=== PATIENT | female | born 1945 ===

== ENCOUNTER 2023-09-22 11:32 | Inpatient (IN) ==
[2023-09-22] MEDS ORDERED: Iohexol 180 (CONTRAST) 10 ML SDV IV ONE ×4 (15:00→16:30)
[2023-09-22] MEDS ORDERED: fentaNYL 100 mcg/2 ml 50 MCG/ML VIAL ONE ×2 (15:01→16:31)
[2023-09-22] MEDS ORDERED: Propofol 10 MG/ML 20 ML BTL ONE (15:02)
[2023-09-22] MEDS ORDERED: Lidocaine 2% PF 5 ML VIAL ONE (15:02)
[2023-09-22] MEDS: Sulfur Hexaflouride MICROSPHR 25 MG VIAL IV ONE (15:30)
[2023-09-22] MEDS ORDERED: cefTRIAXone 1 gm/50 mL D5W 1 GM/50 ML BAG IV ONE (15:48)
[2023-09-22] MEDS ORDERED: Iohexol 350 (CONTRAST) 100 ML PAK IV ONE (16:22)
[2023-09-22] MEDS ORDERED: Acetaminophen IV 1 GM/100ML 1,000 MG/100 ML BAG IV ONE (16:40)
[2023-09-22] MEDS ORDERED: Dextrose 50% Syringe 50 ml 25 GM/50 ML SYRINGE IV PUSH PRN (17:10)
[2023-09-22] MEDS: NS 0.9% 1000 ml BAG 1,000 ML IV SCH (18:38)
[2023-09-22] MEDS: cefTRIAXone 1 gm/50 mL D5W 1 GM/50 ML BAG IV SCH (19:48)
[2023-09-22] MEDS: metroNIDAZOLE IV 500 MG/100ML 500 MG/100 ML BAG IVPB SCH (19:48)
[2023-09-22] MEDS: Insulin GLARGINE 100 un/ml 10 ml VIAL SUBCUT SCH (21:22)
[2023-09-23 06:23] LABS: ABS Basophils 0.1 10^3/uL (0.0-0.1); ABS Eosinophils 0.1 10^3/uL (0.0-0.5); ABS Lymphocytes 0.8 10^3/uL (1.0-4.8); ABS Monocytes 0.9 10^3/uL (0.0-0.9); ABS Neutrophils 6.7 10^3/uL (1.5-7.6); ABS Nucleated RBC 0.02 10^3/ul; Eosinophil % 0.6 %; Hematocrit 43.4 % (35-45); Hemoglobin 13.6 g/dL (11.5-14.3); Lymphocyte % 9.1 %; Mean Corpuscular Hgb Conc 31.4 g/dL (31-36); Mean Corpuscular Volume 92.3 fL (80-97); Mean Platelet Volume 7.8 fL (7.5-11.2); Nucleated Red Blood Cells % 0.2 %/100WBC (0.0-0.8); Platelet Count 207 10^3/uL (150-450); Red Cell Distribution Width 16.2 % (12-17); White Blood Count 8.5 10^3/uL (3.8-11.8)
[2023-09-23] MEDS: Empagliflozin 25 MG TAB PO SCH (09:36)
[2023-09-23 10:26] LABS: Albumin 3.5 g/dL (3.2-5.2); Albumin/Globulin Ratio 1.5 (1-3); Calcium 8.5 mg/dL (8.6-10.3); Creatinine, Serum 3.72 mg/dL (0.51-0.95); Globulin 2.4 g/dL (2-4); Magnesium 2.2 mg/dL (1.9-2.7); Potassium 3.8 mmol/L (3.5-5.0); Total Bilirubin 0.4 mg/dL (0.2-1.0); Total Protein 5.9 g/dL (6.4-8.9)
[2023-09-23] MEDS: Enoxaparin 100 MG/ML SYR SUBCUT SCH (17:00)
[2023-09-23] MEDS: HYDROmorphone 0.5 MG/0.5 ML SYRINGE IV SLOW PU PRN (20:59)
[2023-09-24 07:51] LABS: Hematocrit 38.2 % (35-45); Hemoglobin 12.8 g/dL (11.5-14.3); Mean Corpuscular Hemoglobin 28.8 pg (27-33); Mean Corpuscular Hgb Conc 33.5 g/dL (31-36); Mean Platelet Volume 8.3 fL (7.5-11.2); Platelet Count 280 10^3/uL (150-450); Red Blood Count 4.44 10^6/uL (3.63-4.92); Red Cell Distribution Width 15.6 % (12-17); White Blood Count 12.5 10^3/uL (3.8-11.8)
[2023-09-24 07:58] LABS: Calcium 8.6 mg/dL (8.6-10.3); Creatinine, Serum 2.39 mg/dL (0.51-0.95); Magnesium 1.8 mg/dL (1.9-2.7); Potassium 3.1 mmol/L (3.5-5.0); eGFR CKD-EPI 20.4 (>60)
[2023-09-24 08:34] LABS: ABS Basophils 0.1 10^3/uL (0.0-0.1); ABS Eosinophils 0.1 10^3/uL (0.0-0.5); ABS Lymphocytes 0.7 10^3/uL (1.0-4.8); ABS Monocytes 0.9 10^3/uL (0.0-0.9); ABS Neutrophils 10.8 10^3/uL (1.5-7.6); ABS Nucleated RBC 0.01 10^3/ul; Lymphocyte % 5.5 %; Nucleated Red Blood Cells % 0.1 %/100WBC (0.0-0.8)
[2023-09-24] MEDS: Magnesium Sulfate 2 gm BAG 2 GM/50 ML BAG IVPB ONE (09:28)
[2023-09-24] MEDS: Potassium Chlor 20 meq TAB.ER PO ONE (09:30)
[2023-09-24] MEDS ORDERED: Saline NASAL SPRAY 0.65% BTL BOTH NARES PRN (14:44)
[2023-09-25 06:21] LABS: ABS Basophils 0.1 10^3/uL (0.0-0.1); ABS Eosinophils 0.2 10^3/uL (0.0-0.5); ABS Lymphocytes 0.9 10^3/uL (1.0-4.8); ABS Monocytes 1.3 10^3/uL (0.0-0.9); ABS Nucleated RBC 0.01 10^3/ul; Eosinophil % 1.5 %; Hematocrit 39.4 % (35-45); Lymphocyte % 6.3 %; Mean Corpuscular Hemoglobin 28.4 pg (27-33); Mean Corpuscular Hgb Conc 33.1 g/dL (31-36); Mean Corpuscular Volume 85.8 fL (80-97); Mean Platelet Volume 8.3 fL (7.5-11.2); Nucleated Red Blood Cells % 0.1 %/100WBC (0.0-0.8); Platelet Count 305 10^3/uL (150-450); Red Cell Distribution Width 15.5 % (12-17); White Blood Count 14.4 10^3/uL (3.8-11.8)
[2023-09-25 06:25] LABS: Creatinine, Serum 1.74 mg/dL (0.51-0.95); eGFR CKD-EPI 29.9 (>60)
[2023-09-25] MEDS: Potassium Chlor 20 meq TAB.ER PO ONE (08:36)
[2023-09-25] MEDS: KCL 20 MEQ/100 ML IVPREMIX 20 MEQ/100 ML BAG IV SCH (08:36)
[2023-09-25] MEDS ORDERED: Zosyn per Pharmacy NOTE FOLLOW UP SCH (10:00)
[2023-09-25] MEDS: Piperacillin/Tazobac 3.375 BAG 3.375 GM/100 ML BAG IV ONE (15:28)
[2023-09-25] MEDS: ZOSYN 3.375 GM Q8H per EXTENDED INFUSION IV SCH (21:05)
[2023-09-26 07:11] LABS: ABS Basophils 0.1 10^3/uL (0.0-0.1); ABS Eosinophils 0.2 10^3/uL (0.0-0.5); ABS Lymphocytes 0.9 10^3/uL (1.0-4.8); ABS Monocytes 0.9 10^3/uL (0.0-0.9); ABS Neutrophils 9.4 10^3/uL (1.5-7.6); ABS Nucleated RBC 0.02 10^3/ul; Eosinophil % 2.1 %; Hematocrit 38.7 % (35-45); Hemoglobin 12.8 g/dL (11.5-14.3); Lymphocyte % 7.7 %; Mean Corpuscular Hemoglobin 28.5 pg (27-33); Mean Corpuscular Hgb Conc 33.1 g/dL (31-36); Mean Platelet Volume 7.9 fL (7.5-11.2); Nucleated Red Blood Cells % 0.2 %/100WBC (0.0-0.8); Platelet Count 275 10^3/uL (150-450); Red Cell Distribution Width 15.7 % (12-17); White Blood Count 11.6 10^3/uL (3.8-11.8)
[2023-09-26 07:27] LABS: Calcium 8.2 mg/dL (8.6-10.3); Creatinine, Serum 1.43 mg/dL (0.51-0.95); Magnesium 1.7 mg/dL (1.9-2.7); Potassium 3.1 mmol/L (3.5-5.0); eGFR CKD-EPI 37.8 (>60)
[2023-09-26] MEDS: Magnesium Sulfate 2 gm BAG 2 GM/50 ML BAG IVPB ONE (09:46)
[2023-09-26] MEDS: Potassium Chlor 20 meq TAB.ER PO ONE (09:46)
[2023-09-26] MEDS: Iodixanol (CONTRAST) 320 MG/ML 100 ML SDV IV ONE (11:08)
[2023-09-26] MEDS ORDERED: Magnesium Hydroxide LIQ 30 ML UDC PO PRN (11:37)
[2023-09-26] MEDS ORDERED: Polyethylene Glycol 3350 17 GM PACKET PO PRN (11:37)
[2023-09-26] MEDS: Magnesium Hydroxide LIQ 30 ML UDC PO SCH (11:56)
[2023-09-26] MEDS: NS 0.9% 1000 ml BAG 1,000 ML IV SCH (12:45)
[2023-09-26] MEDS: HYDROmorphone 1 MG/1 ML SYRINGE IV SLOW PU ONE (22:19)
[2023-09-27] MEDS: Senna TAB 8.6 mg TAB PO SCH (00:55)
[2023-09-27 06:24] LABS: ABS Basophils 0.1 10^3/uL (0.0-0.1); ABS Eosinophils 0.3 10^3/uL (0.0-0.5); ABS Monocytes 0.8 10^3/uL (0.0-0.9); ABS Neutrophils 8.8 10^3/uL (1.5-7.6); Eosinophil % 2.7 %; Hematocrit 37.4 % (35-45); Lymphocyte % 8.7 %; Mean Corpuscular Hemoglobin 27.8 pg (27-33); Mean Corpuscular Volume 87.1 fL (80-97); Mean Platelet Volume 7.7 fL (7.5-11.2); Platelet Count 284 10^3/uL (150-450); Red Blood Count 4.29 10^6/uL (3.63-4.92); Red Cell Distribution Width 15.5 % (12-17)
[2023-09-27 06:42] LABS: Calcium 8.1 mg/dL (8.6-10.3); Creatinine, Serum 1.41 mg/dL (0.51-0.95); Potassium 3.6 mmol/L (3.5-5.0); eGFR CKD-EPI 38.4 (>60)
[2023-09-27] MEDS: Acetaminophen IV 1 GM/100ML 1,000 MG/100 ML BAG IV PRN (10:42)
[2023-09-27] MEDS: Enoxaparin 100 MG/ML SYR SUBCUT SCH (10:47)
[2023-09-27] MEDS: HYDROmorphone 0.5 MG/0.5 ML SYRINGE IV SLOW PU PRN (11:47)
[2023-09-27] MEDS: Insulin GLARGINE 100 un/ml 10 ml VIAL SUBCUT SCH (20:42)
[2023-09-27] MEDS: HYDROmorphone 1 MG/1 ML SYRINGE IV SLOW PU PRN (20:44)
[2023-09-28 06:24] LABS: Calcium 7.9 mg/dL (8.6-10.3); Creatinine, Serum 1.55 mg/dL (0.51-0.95); Potassium 3.5 mmol/L (3.5-5.0); eGFR CKD-EPI 34.3 (>60)
[2023-09-29 06:35] LABS: ABS Basophils 0.1 10^3/uL (0.0-0.1); ABS Eosinophils 0.3 10^3/uL (0.0-0.5); ABS Monocytes 0.8 10^3/uL (0.0-0.9); ABS Neutrophils 9.4 10^3/uL (1.5-7.6); ABS Nucleated RBC 0.01 10^3/ul; Eosinophil % 2.8 %; Hemoglobin 11.4 g/dL (11.5-14.3); Lymphocyte % 8.2 %; Mean Corpuscular Hemoglobin 28.9 pg (27-33); Mean Corpuscular Hgb Conc 33.6 g/dL (31-36); Mean Corpuscular Volume 86.1 fL (80-97); Mean Platelet Volume 8.1 fL (7.5-11.2); Nucleated Red Blood Cells % 0.1 %/100WBC (0.0-0.8); Platelet Count 305 10^3/uL (150-450); Red Blood Count 3.94 10^6/uL (3.63-4.92); Red Cell Distribution Width 15.3 % (12-17); White Blood Count 11.6 10^3/uL (3.8-11.8)
[2023-09-29 06:54] LABS: Calcium 8.2 mg/dL (8.6-10.3); Creatinine, Serum 1.92 mg/dL (0.51-0.95); Magnesium 2.3 mg/dL (1.9-2.7); Potassium 3.6 mmol/L (3.5-5.0); eGFR CKD-EPI 26.5 (>60)
[2023-09-29] MEDS: Lactated Ringers 1000 ml BAG 1,000 ML IV SCH (10:29)
[2023-09-29] MEDS ORDERED: Lorazepam PYXIS KEY PRN (13:12)
[2023-09-29] MEDS: LORazepam 2 mg VIAL 1 ml IV PUSH ONE (14:25)
[2023-09-29] MEDS: Gadoteridol (CONTRAST) 279.3 MG/ML 10 ML IV ONE (15:40)
[2023-09-29] MEDS: Glucagon 1 mg VIAL KIT ONE (15:57)
[2023-09-29] MEDS: Polyethylene Glycol 3350 17 GM PACKET PO SCH (17:36)
[2023-09-30] MEDS: Ondansetron 4 mg VIAL 2 MG/ML 2 ml VIAL IV PRN (05:43)
[2023-09-30 06:27] LABS: ABS Basophils 0.1 10^3/uL (0.0-0.1); ABS Eosinophils 0.2 10^3/uL (0.0-0.5); ABS Lymphocytes 0.7 10^3/uL (1.0-4.8); ABS Monocytes 1.1 10^3/uL (0.0-0.9); ABS Neutrophils 8.9 10^3/uL (1.5-7.6); Eosinophil % 1.9 %; Hemoglobin 11.1 g/dL (11.5-14.3); Lymphocyte % 6.7 %; Mean Corpuscular Hemoglobin 28.1 pg (27-33); Mean Corpuscular Hgb Conc 32.7 g/dL (31-36); Mean Corpuscular Volume 86.1 fL (80-97); Mean Platelet Volume 7.7 fL (7.5-11.2); Platelet Count 323 10^3/uL (150-450); Red Blood Count 3.95 10^6/uL (3.63-4.92); Red Cell Distribution Width 15.5 % (12-17); White Blood Count 11.1 10^3/uL (3.8-11.8)
[2023-09-30 07:00] LABS: Calcium 8.2 mg/dL (8.6-10.3); Creatinine, Serum 2.45 mg/dL (0.51-0.95); Potassium 3.6 mmol/L (3.5-5.0); eGFR CKD-EPI 19.8 (>60)
[2023-09-30] MEDS: Enoxaparin 100 MG/ML SYR SUBCUT SCH (10:43)
[2023-09-30] MEDS ORDERED: Midazolam 10 mg/10 ml VIAL 1 mg/ml 10 ml VIAL (10 mg) ONE (14:41)
[2023-09-30] MEDS ORDERED: fentaNYL 100 mcg/2 ml 50 MCG/ML VIAL ONE (14:42)
[2023-09-30] MEDS: PEG 3000 GI LAVAGE 1 GALLON PO ONE (17:41)
[2023-10-01 06:09] LABS: ABS Basophils 0.1 10^3/uL (0.0-0.1); ABS Eosinophils 0.2 10^3/uL (0.0-0.5); ABS Lymphocytes 0.8 10^3/uL (1.0-4.8); ABS Monocytes 0.9 10^3/uL (0.0-0.9); ABS Neutrophils 8.8 10^3/uL (1.5-7.6); ABS Nucleated RBC 0.01 10^3/ul; Eosinophil % 1.6 %; Hematocrit 34.5 % (35-45); Hemoglobin 11.4 g/dL (11.5-14.3); Lymphocyte % 7.4 %; Mean Corpuscular Hemoglobin 28.6 pg (27-33); Mean Corpuscular Hgb Conc 32.9 g/dL (31-36); Mean Corpuscular Volume 86.8 fL (80-97); Mean Platelet Volume 7.6 fL (7.5-11.2); Nucleated Red Blood Cells % 0.1 %/100WBC (0.0-0.8); Platelet Count 309 10^3/uL (150-450); Red Blood Count 3.97 10^6/uL (3.63-4.92); Red Cell Distribution Width 15.5 % (12-17); White Blood Count 10.7 10^3/uL (3.8-11.8)
[2023-10-01 06:21] LABS: INR 1.27 (0.83-1.13)
[2023-10-01 06:27] LABS: Calcium 8.1 mg/dL (8.6-10.3); Creatinine, Serum 3.12 mg/dL (0.51-0.95); Potassium 3.8 mmol/L (3.5-5.0); eGFR CKD-EPI 14.8 (>60)
[2023-10-01] MEDS: PEG 3000 GI LAVAGE 1 GALLON PO ONE (08:07)
[2023-10-01] MEDS ORDERED: Lidocaine 2% JELLY 10 ML JELLY ONE (10:16)
[2023-10-01] MEDS ORDERED: Flumazenil 0.5 mg/5 ml 0.1 MG/ML 5 ml VIAL IV PRN (13:31)
[2023-10-01] MEDS ORDERED: Naloxone 0.4 mg VIAL 0.4 mg/ml 1 ml VIAL IV PUSH PRN (13:31)
[2023-10-01] MEDS: fentaNYL 100 mcg/2 ml 50 MCG/ML VIAL IV SLOW PU ONE (15:36)
[2023-10-01] MEDS: Midazolam 10 mg/10 ml VIAL 1 mg/ml 10 ml VIAL (10 mg) IV SLOW PU ONE (15:37)
[2023-10-01] MEDS: Cefepime 1 GM in Dextrose 1 GM/50 ML BAG IV ONE (16:45)
[2023-10-01] MEDS: Midazolam 2 mg/2 ml VIAL 1 mg/ml 2 ml VIAL (2 mg) ONE (16:45)
[2023-10-01] MEDS: fentaNYL 250 mcg/5 ml 50 MCG/ML 5 ml VIAL (250 MCG) ONE (16:45)
[2023-10-02 06:18] LABS: Hematocrit 35.6 % (35-45); Hemoglobin 11.7 g/dL (11.5-14.3); Mean Corpuscular Hemoglobin 28.4 pg (27-33); Mean Corpuscular Hgb Conc 32.8 g/dL (31-36); Mean Corpuscular Volume 86.6 fL (80-97); Mean Platelet Volume 7.9 fL (7.5-11.2); Platelet Count 318 10^3/uL (150-450); Red Blood Count 4.11 10^6/uL (3.63-4.92); Red Cell Distribution Width 15.6 % (12-17); White Blood Count 8.4 10^3/uL (3.8-11.8)
[2023-10-02 07:09] LABS: Calcium 8.5 mg/dL (8.6-10.3); Creatinine, Serum 2.96 mg/dL (0.51-0.95); Potassium 3.7 mmol/L (3.5-5.0); eGFR CKD-EPI 15.8 (>60)
[2023-10-02] MEDS ORDERED: Naloxone 0.4 mg VIAL 0.4 mg/ml 1 ml VIAL IV PUSH PRN (08:14)
[2023-10-02] MEDS ORDERED: Flumazenil 0.5 mg/5 ml 0.1 MG/ML 5 ml VIAL IV PRN (08:14)
[2023-10-02] MEDS: fentaNYL 100 mcg/2 ml 50 MCG/ML VIAL IV SLOW PU ONE (10:48)
[2023-10-02] MEDS: Midazolam 10 mg/10 ml VIAL 1 mg/ml 10 ml VIAL (10 mg) IV SLOW PU ONE (10:48)
[2023-10-03 08:53] LABS: Sodium 140 mmol/L (135-145)
[2023-10-03 08:54] LABS: Chloride 107 mmol/L (101-111)
[2023-10-03 16:18] LABS: Calcium 8.4 mg/dL (8.6-10.3); Creatinine, Serum 1.78 mg/dL (0.51-0.95); Potassium 3.5 mmol/L (3.5-5.0)
[2023-10-04 06:27] LABS: Calcium 8.3 mg/dL (8.6-10.3); Creatinine, Serum 1.45 mg/dL (0.51-0.95); Potassium 3.3 mmol/L (3.5-5.0); eGFR CKD-EPI 37.2 (>60)
[2023-10-04 08:08] LABS: Albumin 3.4 g/dL (3.2-5.2); Albumin/Globulin Ratio 1.5 (1-3); Direct Bilirubin 0.1 mg/dL (0.03-0.18); Globulin 2.3 g/dL (2-4); Indirect Bilirubin 0.4 mg/dL (0.3-1.0); Magnesium 1.5 mg/dL (1.9-2.7); Total Bilirubin 0.5 mg/dL (0.2-1.0); Total Protein 5.7 g/dL (6.4-8.9)
[2023-10-04] MEDS: Potassium Chlor 20 meq TAB.ER PO ONE (11:51)
[2023-10-04] MEDS: Magnesium Sulf 4 GM/100 ML IV 4,000 MG/100 ML BAG IVPB ONE (12:22)
[2023-10-04] MEDS: Gadoteridol (CONTRAST) 279.3 MG/ML 10 ML IV ONE (14:43)
[2023-10-05] MEDS: HYDROmorphone 0.5 MG/0.5 ML SYRINGE IV SLOW PU ONE (04:02)
[2023-10-05] MEDS: HYDROmorphone 1 MG/1 ML SYRINGE IV SLOW PU ONE (04:08)
[2023-10-05 05:48] LABS: Hemoglobin 11.2 g/dL (11.5-14.3); Mean Corpuscular Hemoglobin 29.1 pg (27-33); Mean Corpuscular Hgb Conc 33.9 g/dL (31-36); Mean Corpuscular Volume 85.7 fL (80-97); Mean Platelet Volume 7.5 fL (7.5-11.2); Platelet Count 344 10^3/uL (150-450); Red Blood Count 3.86 10^6/uL (3.63-4.92); White Blood Count 14.7 10^3/uL (3.8-11.8)
[2023-10-05 06:34] LABS: Calcium 8.7 mg/dL (8.6-10.3); Creatinine, Serum 1.36 mg/dL (0.51-0.95); Potassium 3.6 mmol/L (3.5-5.0); eGFR CKD-EPI 40.1 (>60)
[2023-10-05] MEDS: HYDROmorphone 1 MG/1 ML SYRINGE IV SLOW PU PRN (10:29)
[2023-10-05 14:40] LABS: Hematocrit 31.7 % (35-45); Hemoglobin 10.7 g/dL (11.5-14.3); Mean Corpuscular Hgb Conc 33.6 g/dL (31-36); Mean Corpuscular Volume 86.4 fL (80-97); Mean Platelet Volume 7.5 fL (7.5-11.2); Platelet Count 332 10^3/uL (150-450); Red Blood Count 3.67 10^6/uL (3.63-4.92); Red Cell Distribution Width 16.1 % (12-17); White Blood Count 13.8 10^3/uL (3.8-11.8)
[2023-10-05 15:08] LABS: Calcium 8.5 mg/dL (8.6-10.3); Creatinine, Serum 1.79 mg/dL (0.51-0.95); Potassium 3.9 mmol/L (3.5-5.0); eGFR CKD-EPI 28.9 (>60)
[2023-10-06 06:07] LABS: Hemoglobin 10.5 g/dL (11.5-14.3); Mean Corpuscular Hemoglobin 29.3 pg (27-33); Mean Corpuscular Volume 86.2 fL (80-97); Mean Platelet Volume 7.4 fL (7.5-11.2); Platelet Count 314 10^3/uL (150-450); Red Cell Distribution Width 16.3 % (12-17); White Blood Count 13.3 10^3/uL (3.8-11.8)
[2023-10-06 06:13] LABS: INR 1.39 (0.83-1.13)
[2023-10-06 07:01] LABS: Calcium 8.7 mg/dL (8.6-10.3); Creatinine, Serum 1.98 mg/dL (0.51-0.95); Magnesium 1.8 mg/dL (1.9-2.7); Potassium 3.5 mmol/L (3.5-5.0); eGFR CKD-EPI 25.6 (>60)
[2023-10-06] MEDS: HYDROmorphone 0.5 MG/0.5 ML SYRINGE IV SLOW PU PRN (12:13)
[2023-10-06] MEDS: HYDROmorphone 0.5 MG/0.5 ML SYRINGE ONE (12:35)
[2023-10-06] MEDS: fentaNYL 100 mcg/2 ml 50 MCG/ML VIAL ONE (14:03)
[2023-10-06 18:07] LABS: Calcium 8.9 mg/dL (8.6-10.3); Creatinine, Serum 1.69 mg/dL (0.51-0.95); Potassium 3.5 mmol/L (3.5-5.0); eGFR CKD-EPI 30.9 (>60)
[2023-10-07 06:19] LABS: Hematocrit 35.5 % (35-45); Hemoglobin 11.8 g/dL (11.5-14.3); Mean Corpuscular Hemoglobin 28.8 pg (27-33); Mean Corpuscular Hgb Conc 33.2 g/dL (31-36); Mean Corpuscular Volume 86.8 fL (80-97); Platelet Count 310 10^3/uL (150-450); Red Blood Count 4.09 10^6/uL (3.63-4.92); White Blood Count 12.4 10^3/uL (3.8-11.8)
[2023-10-07 06:54] LABS: Anion Gap 14 mmol/L (2-16); Blood Urea Nitrogen 23 mg/dL (6-24); CO2 Carbon Dioxide 35 mmol/L (22-32); Calcium 8.8 mg/dL (8.6-10.3); Chloride 95 mmol/L (101-111); Creatinine, Serum 1.48 mg/dL (0.51-0.95); Glucose 213 mg/dL (70-100); Magnesium 1.4 mg/dL (1.9-2.7); Potassium 3.2 mmol/L (3.5-5.0); Sodium 144 mmol/L (135-145); eGFR CKD-EPI 36.2 (>60)
[2023-10-07] MEDS: Magnesium Sulfate 2 gm BAG 2 GM/50 ML BAG IVPB ONE ×2 (08:08→16:50)
[2023-10-07] MEDS: Potassium Chlor 20 meq TAB.ER PO ONE (08:09)
[2023-10-07] MEDS: Iodixanol (CONTRAST) 320 MG/ML 100 ML SDV IV ONE (12:12)
[2023-10-07] MEDS: fentaNYL 250 mcg/5 ml 50 MCG/ML 5 ml VIAL (250 MCG) ONE (12:27)
[2023-10-07] MEDS: Acetaminophen IV 1 GM/100ML 1,000 MG/100 ML BAG IV PRN ×2 (12:48→21:13)
[2023-10-07 14:52] LABS: Lipase < 10 U/L (11.0-82.0)
[2023-10-07] MEDS: D5W 1/2 NS 1000 ml BAG 1,000 ML IV SCH (16:50)
[2023-10-08 05:36] LABS: ABS Basophils 0.1 10^3/uL (0.0-0.1); ABS Eosinophils 0.1 10^3/uL (0.0-0.5); ABS Monocytes 0.9 10^3/uL (0.0-0.9); ABS Neutrophils 7.3 10^3/uL (1.5-7.6); Eosinophil % 1.3 %; Hemoglobin 10.2 g/dL (11.5-14.3); Lymphocyte % 11.1 %; Mean Corpuscular Hemoglobin 28.4 pg (27-33); Mean Corpuscular Volume 86.2 fL (80-97); Mean Platelet Volume 7.5 fL (7.5-11.2); Platelet Count 306 10^3/uL (150-450); Red Cell Distribution Width 15.9 % (12-17); White Blood Count 9.4 10^3/uL (3.8-11.8)
[2023-10-08 06:15] LABS: Albumin 3.3 g/dL (3.2-5.2); Albumin/Globulin Ratio 1.5 (1-3); Calcium 8.3 mg/dL (8.6-10.3); Creatinine, Serum 1.03 mg/dL (0.51-0.95); Globulin 2.2 g/dL (2-4); Magnesium 1.8 mg/dL (1.9-2.7); Phosphorus 3.2 mg/dL (2.5-5.0); Potassium 3.3 mmol/L (3.5-5.0); Total Bilirubin 0.6 mg/dL (0.2-1.0); Total Protein 5.5 g/dL (6.4-8.9)
[2023-10-08] MEDS: Magnesium Sulfate 2 gm BAG 2 GM/50 ML BAG IVPB ONE (07:49)
[2023-10-08] MEDS: Potassium Chlor 20 meq TAB.ER PO ONE (08:16)
[2023-10-08] MEDS: Magnesium Sulfate IV 1GM/100ML 1 GM/100 ML BAG IV ONE (08:18)
[2023-10-08] MEDS: Enoxaparin 40 MG/0.4 ML SYR SUBCUT SCH (17:58)
[2023-10-09 07:50] LABS: Hematocrit 30.8 % (35-45); Hemoglobin 10.4 g/dL (11.5-14.3); Mean Corpuscular Hemoglobin 28.9 pg (27-33); Mean Corpuscular Hgb Conc 33.8 g/dL (31-36); Mean Corpuscular Volume 85.8 fL (80-97); Mean Platelet Volume 7.9 fL (7.5-11.2); Platelet Count 318 10^3/uL (150-450); Red Blood Count 3.59 10^6/uL (3.63-4.92); Red Cell Distribution Width 15.8 % (12-17)
[2023-10-09] MEDS ORDERED: Dextrose 50% Syringe 50 ml 25 GM/50 ML SYRINGE IV PUSH PRN (07:58)
[2023-10-09 08:11] LABS: Calcium 8.2 mg/dL (8.6-10.3); Creatinine, Serum 0.9 mg/dL (0.51-0.95); Potassium 3.9 mmol/L (3.5-5.0); eGFR CKD-EPI 65.8 (>60)
[2023-10-09] MEDS: Insulin GLARGINE 100 un/ml 10 ml VIAL SUBCUT SCH (20:39)
[2023-10-09] MEDS ORDERED: Insulin GLARGINE 100 un/ml 10 ml VIAL SUBCUT SCH (21:00)
[2023-10-10 06:48] LABS: Hematocrit 33.9 % (35-45); Hemoglobin 11.3 g/dL (11.5-14.3); Mean Corpuscular Hemoglobin 29.3 pg (27-33); Mean Corpuscular Hgb Conc 33.3 g/dL (31-36); Mean Platelet Volume 7.9 fL (7.5-11.2); Platelet Count 301 10^3/uL (150-450); Red Blood Count 3.85 10^6/uL (3.63-4.92); Red Cell Distribution Width 15.7 % (12-17); White Blood Count 10.6 10^3/uL (3.8-11.8)
[2023-10-10 06:54] LABS: Creatinine, Serum 1.07 mg/dL (0.51-0.95); Potassium 4.2 mmol/L (3.5-5.0); eGFR CKD-EPI 53.5 (>60)
[2023-10-10] MEDS ORDERED: Senna TAB 8.6 mg TAB PO PRN (14:36)
[2023-10-11 05:53] LABS: Hematocrit 30.9 % (35-45); Hemoglobin 10.3 g/dL (11.5-14.3); Mean Corpuscular Hemoglobin 28.6 pg (27-33); Mean Corpuscular Hgb Conc 33.3 g/dL (31-36); Platelet Count 335 10^3/uL (150-450); Red Cell Distribution Width 15.9 % (12-17); White Blood Count 9.1 10^3/uL (3.8-11.8)
[2023-10-11 06:24] LABS: Calcium 8.3 mg/dL (8.6-10.3); Creatinine, Serum 1.05 mg/dL (0.51-0.95); Magnesium 1.6 mg/dL (1.9-2.7); Potassium 4.2 mmol/L (3.5-5.0); eGFR CKD-EPI 54.7 (>60)
[2023-10-11] MEDS: Magnesium Sulf 4 GM/100 ML IV 4,000 MG/100 ML BAG IVPB ONE (08:32)
[2023-10-12 08:08] LABS: Calcium 8.7 mg/dL (8.6-10.3); Creatinine, Serum 0.99 mg/dL (0.51-0.95); Magnesium 1.8 mg/dL (1.9-2.7); Potassium 4.5 mmol/L (3.5-5.0); eGFR CKD-EPI 58.7 (>60)
[2023-10-12] MEDS: Magnesium Sulfate 2 gm BAG 2 GM/50 ML BAG IVPB ONE (08:42)
[2023-10-12] MEDS: Magnesium Sulfate IV 1GM/100ML 1 GM/100 ML BAG IV ONE (10:05)
[2023-10-12] MEDS: Empagliflozin 25 MG TAB PO SCH (14:07)
[2023-10-13 06:06] LABS: ABS Basophils 0.1 10^3/uL (0.0-0.1); ABS Eosinophils 0.1 10^3/uL (0.0-0.5); ABS Lymphocytes 1.4 10^3/uL (1.0-4.8); ABS Monocytes 1.5 10^3/uL (0.0-0.9); ABS Neutrophils 12.1 10^3/uL (1.5-7.6); Eosinophil % 0.9 %; Hematocrit 32.2 % (35-45); Hemoglobin 10.4 g/dL (11.5-14.3); Lymphocyte % 9.3 %; Mean Corpuscular Hgb Conc 32.5 g/dL (31-36); Mean Corpuscular Volume 86.2 fL (80-97); Mean Platelet Volume 8.3 fL (7.5-11.2); Platelet Count 441 10^3/uL (150-450); Red Blood Count 3.73 10^6/uL (3.63-4.92); Red Cell Distribution Width 16.1 % (12-17); White Blood Count 15.3 10^3/uL (3.8-11.8)
[2023-10-13 08:37] LABS: ABS Eosinophils 0.1 10^3/uL (0.0-0.5); ABS Lymphocytes 0.9 10^3/uL (1.0-4.8); ABS Monocytes 1.5 10^3/uL (0.0-0.9); ABS Neutrophils 14.5 10^3/uL (1.5-7.6); ABS Nucleated RBC 0.01 10^3/ul; Eosinophil % 0.6 %; Hematocrit 32.9 % (35-45); Lymphocyte % 5.3 %; Mean Corpuscular Hemoglobin 28.9 pg (27-33); Mean Corpuscular Hgb Conc 33.5 g/dL (31-36); Mean Corpuscular Volume 86.4 fL (80-97); Platelet Count 423 10^3/uL (150-450); Red Blood Count 3.81 10^6/uL (3.63-4.92); Red Cell Distribution Width 15.5 % (12-17); White Blood Count 17.1 10^3/uL (3.8-11.8)
[2023-10-13] MEDS: Magnesium Sulfate 2 gm BAG 2 GM/50 ML BAG IVPB ONE (08:46)
[2023-10-13 09:23] LABS: Albumin 3.6 g/dL (3.2-5.2); Albumin/Globulin Ratio 1.4 (1-3); Calcium 8.8 mg/dL (8.6-10.3); Creatinine, Serum 1.1 mg/dL (0.51-0.95); Globulin 2.6 g/dL (2-4); Magnesium 2.1 mg/dL (1.9-2.7); Phosphorus 4.3 mg/dL (2.5-5.0); Potassium 4.2 mmol/L (3.5-5.0); Total Bilirubin 0.5 mg/dL (0.2-1.0); Total Protein 6.2 g/dL (6.4-8.9); eGFR CKD-EPI 51.8 (>60)
[2023-10-13] MEDS: Lactated Ringers 1000 ml BAG 1,000 ML IV SCH (17:30)
[2023-10-13 17:42] LABS: Urine Appearance Clear; Urine Bacteria Absent /HPF (Absent); Urine Bilirubin Negative (Negative); Urine Blood 3+ (Negative); Urine Color Colorless; Urine Glucose 4+ (>=1000 mg/dL) (Negative); Urine Ketones Negative (Negative); Urine Nitrite Negative (Negative); Urine Protein 1+ (>=30 mg/dL) (Negative); Urine Red Blood Cell 3+(>10/hpf) /HPF (0-Trace); Urine Urobilinogen Negative (Negative); Urine White Blood Cell 2+(11-20/hpf) /HPF (0-Trace)
[2023-10-13 17:43] LABS: Urine Appearance Clear; Urine Bacteria Absent /HPF (Absent); Urine Bilirubin Negative (Negative); Urine Blood Trace (Negative); Urine Color Light-Yellow; Urine Glucose 4+ (>=1000 mg/dL) (Negative); Urine Ketones Negative (Negative); Urine Nitrite Negative (Negative); Urine Protein 1+ (>=30 mg/dL) (Negative); Urine Red Blood Cell Trace(0-2/hpf) /HPF (0-Trace); Urine Urobilinogen Negative (Negative); Urine White Blood Cell 1+(6-10/hpf) /HPF (0-Trace); Urine pH 7.5 (5.0-8.0)
[2023-10-13] MEDS: Acetaminophen IV 1 GM/100ML 1,000 MG/100 ML BAG IV SCH (17:55)
[2023-10-13] MEDS: HYDROmorphone 1 MG/1 ML SYRINGE IV SLOW PU PRN (18:16)
[2023-10-13] MEDS: Iodixanol (CONTRAST) 320 MG/ML 100 ML SDV IV ONE (19:34)
[2023-10-13] MEDS ORDERED: Zosyn per Pharmacy NOTE FOLLOW UP SCH (20:00)
[2023-10-13] MEDS: Piperacillin/Tazobac 3.375 BAG 3.375 GM/100 ML BAG IV ONE (21:05)
[2023-10-14] MEDS: Enoxaparin 40 MG/0.4 ML SYR SUBCUT ONE (01:16)
[2023-10-14] MEDS: ZOSYN 3.375 GM Q8H per EXTENDED INFUSION IV SCH (01:37)
[2023-10-14] MEDS: HYDROmorphone 1 MG/1 ML SYRINGE IV SLOW PU ONE (02:19)
[2023-10-14 06:07] LABS: Hematocrit 32.4 % (35-45); Hemoglobin 10.8 g/dL (11.5-14.3); Mean Corpuscular Hemoglobin 28.9 pg (27-33); Mean Corpuscular Hgb Conc 33.3 g/dL (31-36); Mean Corpuscular Volume 86.8 fL (80-97); Mean Platelet Volume 8.3 fL (7.5-11.2); Platelet Count 415 10^3/uL (150-450); Red Blood Count 3.74 10^6/uL (3.63-4.92); Red Cell Distribution Width 16.4 % (12-17); White Blood Count 14.3 10^3/uL (3.8-11.8)
[2023-10-14 06:25] LABS: Albumin 3.5 g/dL (3.2-5.2); Albumin/Globulin Ratio 1.3 (1-3); Calcium 8.7 mg/dL (8.6-10.3); Creatinine, Serum 1.25 mg/dL (0.51-0.95); Globulin 2.6 g/dL (2-4); Potassium 4.1 mmol/L (3.5-5.0); Total Bilirubin 0.8 mg/dL (0.2-1.0); Total Protein 6.1 g/dL (6.4-8.9); eGFR CKD-EPI 44.4 (>60)
[2023-10-14] MEDS: Enoxaparin 80 MG/0.8 ML SYR SUBCUT SCH (07:52)
[2023-10-14] MEDS: Sulfur Hexaflouride MICROSPHR 25 MG VIAL IV ONE (17:40)
[2023-10-15 07:38] LABS: Albumin 3.3 g/dL (3.2-5.2); Albumin/Globulin Ratio 1.3 (1-3); Calcium 8.4 mg/dL (8.6-10.3); Creatinine, Serum 1.41 mg/dL (0.51-0.95); Globulin 2.6 g/dL (2-4); Potassium 3.9 mmol/L (3.5-5.0); Total Bilirubin 0.6 mg/dL (0.2-1.0); Total Protein 5.9 g/dL (6.4-8.9); eGFR CKD-EPI 38.4 (>60)
[2023-10-15 07:39] LABS: Hematocrit 29.1 % (35-45); Hemoglobin 9.6 g/dL (11.5-14.3); Mean Corpuscular Hemoglobin 28.8 pg (27-33); Mean Corpuscular Hgb Conc 32.9 g/dL (31-36); Mean Corpuscular Volume 87.7 fL (80-97); Mean Platelet Volume 8.3 fL (7.5-11.2); Platelet Count 352 10^3/uL (150-450); Red Blood Count 3.32 10^6/uL (3.63-4.92); Red Cell Distribution Width 16.1 % (12-17); White Blood Count 14.3 10^3/uL (3.8-11.8)
[2023-10-15 09:01] LABS: ABS Basophils 0.1 10^3/uL (0.0-0.1); ABS Eosinophils 0.2 10^3/uL (0.0-0.5); ABS Lymphocytes 1.5 10^3/uL (1.0-4.8); ABS Monocytes 1.9 10^3/uL (0.0-0.9); ABS Neutrophils 10.6 10^3/uL (1.5-7.6); ABS Nucleated RBC 0.01 10^3/ul; Eosinophil % 1.4 %; Lymphocyte % 10.4 %
[2023-10-15] MEDS ORDERED: Sulfur Hexaflouride MICROSPHR 25 MG VIAL ONE (14:31)
[2023-10-15] MEDS ORDERED: Senna TAB 8.6 mg TAB PO PRN (14:43)
[2023-10-15] MEDS: Ciprofloxacin 400mg IVPREMIX 400 MG/200 ML BAG IVPB SCH (16:07)
[2023-10-15] MEDS ORDERED: Ampicillin IV 1 GM in NS 0.9% 50 ML 50 ML IVPB SCH (19:00)
[2023-10-16 08:09] LABS: Hematocrit 28.7 % (35-45); Hemoglobin 9.5 g/dL (11.5-14.3); Mean Corpuscular Hemoglobin 28.9 pg (27-33); Mean Corpuscular Hgb Conc 32.9 g/dL (31-36); Mean Corpuscular Volume 87.8 fL (80-97); Mean Platelet Volume 8.4 fL (7.5-11.2); Platelet Count 363 10^3/uL (150-450); Red Blood Count 3.27 10^6/uL (3.63-4.92); Red Cell Distribution Width 16.1 % (12-17); White Blood Count 14.2 10^3/uL (3.8-11.8)
[2023-10-16 08:16] LABS: Calcium 8.1 mg/dL (8.6-10.3); Creatinine, Serum 1.16 mg/dL (0.51-0.95); Magnesium 1.9 mg/dL (1.9-2.7); Potassium 3.8 mmol/L (3.5-5.0); eGFR CKD-EPI 48.6 (>60)
[2023-10-16] MEDS: Polyethylene Glycol 3350 17 GM PACKET PO SCH (09:04)
[2023-10-16] MEDS ORDERED: HYDROmorphone 1 MG/1 ML SYRINGE IV SLOW PU PRN (19:12)
[2023-10-16] MEDS: Senna TAB 8.6 mg TAB PO SCH (22:50)
[2023-10-17] MEDS ORDERED: LORazepam 2 mg VIAL 1 ml IV PUSH PRN (02:03)
[2023-10-17] MEDS ORDERED: Lorazepam PYXIS KEY PRN (02:03)
[2023-10-17] MEDS: Magnesium Sulfate 2 gm BAG 2 GM/50 ML BAG IVPB ONE (09:03)
[2023-10-17] MEDS: Magnesium Sulfate IV 1GM/100ML 1 GM/100 ML BAG IV ONE (12:16)
[2023-10-18 09:53] VITALS: BP 113/44
== END 2023-10-18 12:25 | disposition home or self-care (01) | DRG 681 ==
LOC: OR 11:32 → SUATTDRO 11:38 → SSU 11:38
PROVIDERS: ADMIT Urology; ATTEND Internal Medicine